=== PATIENT | female | born 1980 | race Caucasian/White ===

== ENCOUNTER 2016-08-02 06:31 | Emergency (ER) | payer OTHER ==
[2016-08-02] MEDS ORDERED: methylPREDNISolone 125 MG* 2 ML VIAL IV ONE (06:49)
[2016-08-02] MEDS ORDERED: diPHENhydraMINE IV* 50 MG/ML 1 ml VIAL (BENADRYL) IV ONE (06:49)
[2016-08-02] MEDS ORDERED: Famotidine IV* 10 MG/ML 2 ML (20 mg) IV SLOW PU ONE (06:49)
[2016-08-02] MEDS ORDERED: NS 0.9% 1000 ML* 2,000 ML IV ONE (06:50)
--- NOTE | 2016-08-02 06:52 | ED ---
Allergic Reaction/Systemic - HPI Summary HPI Summary: Pt here w/ hives, flushing and itching. She had this happen last week 48 hours after starting keflex for a facial cellulitis. She was seen for the reaction and received IV medications as well as home PO prednisone and an anti- histamine. She felt much better but continued her keflex. She took her last prednisone and anti-histamine 2 days ago and started to notice patches returning. After taking her 2am dose of keflex today, she had more acute symptoms and couldn't wait to go to her PCP's office for care so came here. Thinks she has 1 or 2 days left of her keflex but reports her cellulitis is much better. Denies oral swelling, difficulty breathing, wheezing, nausea or vomiting. She does report a possible mild reaction to PCN when she was younger but states she's had keflex in the past w/o difficulty. - History of Current Complaint Chief Complaint: EDAllergicReaction Time Seen by Provider: 08/02/16 06:39 Hx Obtained From: Patient Hx Last Menstrual Period: 04/08/14 Pain Intensity: 6 - Allergies/Home Medications Allergies/Adverse Reactions: Allergies Allergy/AdvReac Type Severity Reaction Status Date / Time Amoxicillin Allergy Intermediate Hives Verified 04/14/14 19:07 PMH/Surg Hx/FS Hx/Imm Hx Previously Healthy: No - facial cellulitis w/ recent allergic reaction Endocrine/Hematology History: Denies: Hx Diabetes, Hx Thyroid Disease, Autoimmune Disease Cardiovascular History: Denies: Hx Hypertension Respiratory History: Denies: Hx Asthma, Hx Chronic Obstructive Pulmonary Disease (COPD) GI History: Denies: Hx Ulcer - Immunization History Date of Tetanus Vaccine: UNSURE Date of Influenza Vaccine: NONE Infectious Disease History: No Infectious Disease History: Denies: Hx Clostridium Difficile, Hx Hepatitis, Hx Human Immunodeficiency Virus (HIV), Hx of Known/Suspected MRSA, Hx Shingles, Hx Tuberculosis, Hx Known/ Suspected VRE, Hx Known/Suspected VRSA, History Other Infectious Disease, Traveled Outside the [place] in Last 30 Days - Family History Known Family History: Positive: None - Social History 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 Alcohol Use: Occasionally Substance Use Type: Reports: Marijuana Smoking Status (MU): Former Smoker Length of Time of Smoking/Using Tobacco: Quit a couple of months ago Have You Smoked in the Last Year: Yes Review of Systems Constitutional: Other - flushing Negative: Fever, Chills, Fatigue Eyes: Negative ENT: Negative Negative: Chest Pain Negative: Shortness Of Breath Gastrointestinal: Negative Positive: no symptoms reported Skin: Other - see HPI Neurological: Negative Psychological: Normal All Other Systems Reviewed And Are Negative: Yes Physical Exam Triage Information Reviewed: Yes Vital Signs On Initial Exam: Initial Vitals Temp Pulse Resp BP Pulse Ox 100 F 96 14 165/91 98 08/02/16 06:34 08/02/16 06:34 08/02/16 06:34 08/02/16 06:34 08/02/16 06:34 Vital Signs Reviewed: Yes Appearance: Positive: No Pain Distress - reports feeling hot and itchy but is in control of her person, Obese Head/Face: Positive: Other - facial and B/L pinna edema and erythema Eyes: Positive: Normal, EOMI, BEKAH, Conjunctiva Clear. Negative: Conjunctiva Inflammed, Discharge ENT: Positive: Hearing grossly normal, Pharynx normal - no edema, TMs normal. Negative: Nasal congestion, Nasal drainage Neck: Positive: Supple, Nontender Respiratory/Lung Sounds: Positive: Clear to Auscultation, Breath Sounds Present. Negative: Rales, Rhonchi, Stridor, Wheezes Cardiovascular: Positive: Normal, RRR, Pulses are Symmetrical in both Upper and Lower Extremities, S1, S2. Negative: Leg Edema Left, Leg Edema Right Abdomen Description: Positive: Nontender, Soft Bowel Sounds: Positive: Present Musculoskeletal: Positive: Normal, Strength/ROM Intact Neurological: Positive: Normal, Sensory/Motor Intact, Alert, Oriented to Person Place, Time, CN Intact II-III Psychiatric: Positive: Normal Diagnostics - Vital Signs Vital Signs Temp Pulse Resp BP Pulse Ox 08/02/16 06:34 100 F 96 14 165/91 98 - Laboratory Lab Statement: Any lab studies that have been ordered have been reviewed, and results considered in the medical decision making process. Re-Evaluation - Re-Evaluation First Eval Change: Improved - itching less, erythema improving Allergic Reaction Course/Dx - Course Course Of Treatment: Suspect pt's reaction was caused by keflex antibiotic. Improved w/ IV allergy cocktail. Will have her continue another prednisone taper + anti-histamine and avoid keflex as well as PCN based anbx in the future. Reviewed danger s/sx of when to return to ED. - Diagnoses Provider Diagnoses: Allergic reaction caused by a drug Discharge - Discharge Plan Condition: Stable Disposition: HOME Prescriptions: Methylprednisolone [Medrol Dosepak 4 MG*] 4 mg PO .SEE TEJAL INSTRUCTION #1 tejal hydrOXYzine HCL TAB* [Atarax TAB*] 25 mg PO QID PRN #20 tab PRN Reason: Itching Patient Education Materials: Antibiotic Medication Allergy (ED) Referrals: Anam Adame MD [Primary Care Provider] - Additional Instructions: Drink plenty of water - AVOID KELFEX AND PENICILLIN BASED ANTIBIOTICS Avoid chemicals in general (ie. air fresheners, perfumes, scented lotions/ detergents/soaps, etc) Follow-up with PCP in 1-2 days *If you develop facial or oral swelling and/or trouble breathing/swallowing, return to ED
[2016-08-02 09:39] VITALS: BP 149/80
== END 2016-08-02 09:47 | disposition home or self-care (01) ==
LOC: ED 06:31
DX: J30.81 Allergic rhinitis due to animal (cat) (dog) hair and dander (principal); R21 Rash and other nonspecific skin eruption; Z87.891 Personal history of nicotine dependence
CPT/HCPCS: 96374; 96375; 99284; J1200; J2930

== ENCOUNTER 2016-08-10 09:41 | Emergency (ER) | payer OTHER ==
[2016-08-10] MEDS ORDERED: diPHENhydraMINE IV* 50 MG/ML 1 ml VIAL (BENADRYL) IV ONE (10:42)
[2016-08-10] MEDS ORDERED: methylPREDNISolone 125 MG* 2 ML VIAL IV ONE (10:42)
[2016-08-10] MEDS ORDERED: Famotidine IV * 20 MG in NS 0.9% 100 ML* 100 ML IVPB ONE (10:42)
[2016-08-10] MEDS ORDERED: Acetaminophen TAB* 325 MG PO ONE (10:43)
[2016-08-10 10:54] LABS: Hematocrit 41 % (35-47); Hemoglobin 13.1 g/dl (12.0-16.0); Mean Corpuscular HGB Conc 32 g/dl (31-36); Mean Corpuscular Hemoglobin 27 pg (27-31); Mean Corpuscular Volume 83 fL (80-97); Mean Platelet Volume 7 um3 (7.4-10.4); Red Blood Count 4.88 10^6/ul (4.0-5.4); Red Cell Distribution Width 13 % (10.5-15); White Blood Count 11.5 10^3/ul (3.5-10.8)
[2016-08-10] MEDS: NS 0.9% 1000 ML* 2,000 ML IV ONE ×2 (11:03→11:41)
[2016-08-10 11:10] LABS: Albumin 3.2 g/dL (3.2-5.2); BUN/Creatinine Ratio 32.3 (8-20); Calcium 8.4 mg/dL (8.6-10.3); EGFR African American 134.2 (>60); EGFR Non-African American 104.3 (>60); Globulin 2.8 g/dL (2-4); Potassium 4.3 mmol/L (3.5-5.0); Total Bilirubin 0.5 mg/dL (0.2-1.0)
[2016-08-10 13:08] VITALS: BP 127/79
[2016-08-10 13:31] LABS: Urine Bilirubin Negative (Negative); Urine Glucose Negative (Negative); Urine Nitrite Negative (Negative)
--- NOTE | 2016-08-10 14:35 | ED ---
Ganga Tobias Adam, scribed for Erik Bourne MD on 08/10/16 at 1036 . Skin Complaint - HPI Summary HPI Summary: 2 weeks ago she went to the hospital in [place] because she had cellulitis on her face. She was put on Keflex and steroids. 1 week ago she came to [facility] because her face was swollen and she was taken off the Keflex. She came to the ED today because her facial swelling has persisted. She states that she is no longer taking the steroids or any other medication at this time. She also c/o itchiness, pain in the back of her neck/head, and soreness in the left side of her throat. She presents with a fever of 101.3 and denies having a fever prior to today. PCP is Dr. Adame but she has not seen him about this. - History of Current Complaint Chief Complaint: EDFever Time Seen by Provider: 08/10/16 10:18 Stated Complaint: RASH/FACE SWELLING Hx Obtained From: Patient Onset/Duration: Started Weeks Ago, Atraumatic, Still Present Timing: Constant Onset Severity: Moderate Current Severity: Moderate Pain Intensity: 6 Pain Scale Used: 0-10 Numeric Skin Location: Face Character: Swelling, Pruritus, Redness Aggravating Symptom(s): Nothing Alleviating Symptom(s): Nothing Associated Signs & Symptoms: Fever - Allergy/Home Medications Allergies/Adverse Reactions: Allergies Allergy/AdvReac Type Severity Reaction Status Date / Time Amoxicillin Allergy Intermediate Hives Verified 04/14/14 19:07 Cephalexin [From Keflex] Allergy Hives Verified 08/02/16 08:13 Penicillins Allergy Hives Verified 08/02/16 09:31 PMH/Surg Hx/FS Hx/Imm Hx Endocrine/Hematology History: Denies: Hx Diabetes, Hx Thyroid Disease Cardiovascular History: Denies: Hx Hypertension Respiratory History: Denies: Hx Asthma, Hx Chronic Obstructive Pulmonary Disease (COPD) GI History: Denies: Hx Ulcer - Immunization History Date of Tetanus Vaccine: UNSURE Date of Influenza Vaccine: NONE Infectious Disease History: No Infectious Disease History: Denies: Hx Clostridium Difficile, Hx Hepatitis, Hx Human Immunodeficiency Virus (HIV), Hx of Known/Suspected MRSA, Hx Shingles, Hx Tuberculosis, Hx Known/ Suspected VRE, Hx Known/Suspected VRSA, History Other Infectious Disease, Traveled Outside the [place] in Last 30 Days - Family History Known Family History: Positive: None - Per pt - Social History Lives: Alone Alcohol Use: Occasionally Hx Substance Use: Yes Substance Use Type: Reports: Marijuana Hx Tobacco Use: Yes Smoking Status (MU): Former Smoker Length of Time of Smoking/Using Tobacco: Quit a couple of months ago Have You Smoked in the Last Year: Yes Review of Systems Positive: Sore Throat Positive: Myalgia - Back of head/neck, Edema - Facial Positive: Other - Itchiness All Other Systems Reviewed And Are Negative: Yes Physical Exam Triage Information Reviewed: Yes Vital Signs On Initial Exam: Initial Vitals Temp Pulse Resp BP Pulse Ox 101.3 F 101 20 135/92 100 08/10/16 09:51 08/10/16 09:51 08/10/16 09:51 08/10/16 09:51 08/10/16 09:51 Vital Signs Reviewed: Yes Appearance: Positive: Well-Appearing, No Pain Distress Skin: Positive: Warm, Skin Color Reflects Adequate Perfusion, Dry Head/Face: Positive: Normal Head/Face Inspection Eyes: Positive: Normal ENT: Positive: Normal ENT inspection Neck: Positive: Supple, Nontender Respiratory/Lung Sounds: Positive: Clear to Auscultation, Breath Sounds Present Cardiovascular: Positive: RRR Abdomen Description: Positive: Nontender, Soft Bowel Sounds: Positive: Present Musculoskeletal: Positive: Normal Neurological: Positive: Normal Psychiatric: Positive: Normal, Affect/Mood Appropriate Diagnostics - Vital Signs Vital Signs Temp Pulse Resp BP Pulse Ox 08/10/16 09:51 101.3 F 101 20 135/92 100 - Laboratory Lab Results: Lab Results 08/10/16 08/10/16 08/10/16 Range/Units 10:37 10:37 10:37 WBC 11.5 H (3.5-10.8) 10^3/ul RBC 4.88 (4.0-5.4) 10^6/ul Hgb 13.1 (12.0-16.0) g/dl Hct 41 (35-47) % MCV 83 (80-97) fL MCH 27 (27-31) pg MCHC 32 (31-36) g/dl RDW 13 (10.5-15) % Plt Count 285 (150-450) 10^3/ul MPV 7 L (7.4-10.4) um3 Neut % (Auto) 82.8 (38-83) % Lymph % (Auto) 9.5 L (25-47) % [place] % (Auto) 2.6 (1-9) % Eos % (Auto) 4.9 (0-6) % Baso % (Auto) 0.2 (0-2) % Absolute Neuts (auto) 9.5 H (1.5-7.7) 10^3/ul Absolute Lymphs (auto) 1.1 (1.0-4.8) 10^3/ul Absolute Monos (auto) 0.3 (0-0.8) 10^3/ul Absolute Eos (auto) 0.6 (0-0.6) 10^3/ul Absolute Basos (auto) 0 (0-0.2) 10^3/ul Absolute Nucleated RBC 0 10^3/ul Nucleated RBC % 0 INR (Anticoag Therapy) 0.78 L (0.89-1.11) Sodium 132 L (133-145) mmol/L Potassium 4.3 (3.5-5.0) mmol/L Chloride 104 (101-111) mmol/L Carbon Dioxide 25 (22-32) mmol/L Anion Gap 3 (2-11) mmol/L BUN 21 (6-24) mg/dL Creatinine 0.65 (0.51-0.95) mg/dL Est GFR ( Amer) 134.2 (>60) Est GFR (Non-Af Amer) 104.3 (>60) BUN/Creatinine Ratio 32.3 H (8-20) Glucose 110 H (70-100) mg/dL Lactic Acid (0.5-2.0) mmol/L Calcium 8.4 L (8.6-10.3) mg/dL Total Bilirubin 0.50 (0.2-1.0) mg/dL AST 15 (13-39) U/L ALT 40 (7-52) U/L Alkaline Phosphatase 54 (34-104) U/L Troponin I 0.00 (<0.04) ng/mL Total Protein 6.0 L (6.4-8.9) g/dL Albumin 3.2 (3.2-5.2) g/dL Globulin 2.8 (2-4) g/dL Albumin/Globulin Ratio 1.1 (1-3) Urine Color Urine Appearance Urine pH (5-9) Ur Specific [place] (1.010-1.030) Urine Protein (Negative) Urine Ketones (Negative) Urine Blood (Negative) Urine Nitrate (Negative) Urine Bilirubin (Negative) Urine Urobilinogen (Negative) Ur Leukocyte Esterase (Negative) Urine Glucose (Negative) 08/10/16 08/10/16 Range/Units 10:37 12:45 WBC (3.5-10.8) 10^3/ul RBC (4.0-5.4) 10^6/ul Hgb (12.0-16.0) g/dl Hct (35-47) % MCV (80-97) fL MCH (27-31) pg MCHC (31-36) g/dl RDW (10.5-15) % Plt Count (150-450) 10^3/ul MPV (7.4-10.4) um3 Neut % (Auto) (38-83) % Lymph % (Auto) (25-47) % [place] % (Auto) (1-9) % Eos % (Auto) (0-6) % Baso % (Auto) (0-2) % Absolute Neuts (auto) (1.5-7.7) 10^3/ul Absolute Lymphs (auto) (1.0-4.8) 10^3/ul Absolute Monos (auto) (0-0.8) 10^3/ul Absolute Eos (auto) (0-0.6) 10^3/ul Absolute Basos (auto) (0-0.2) 10^3/ul Absolute Nucleated RBC 10^3/ul Nucleated RBC % INR (Anticoag Therapy) (0.89-1.11) Sodium (133-145) mmol/L Potassium (3.5-5.0) mmol/L Chloride (101-111) mmol/L Carbon Dioxide (22-32) mmol/L Anion Gap (2-11) mmol/L BUN (6-24) mg/dL Creatinine (0.51-0.95) mg/dL Est GFR ( Amer) (>60) Est GFR (Non-Af Amer) (>60) BUN/Creatinine Ratio (8-20) Glucose (70-100) mg/dL Lactic Acid 0.6 (0.5-2.0) mmol/L Calcium (8.6-10.3) mg/dL Total Bilirubin (0.2-1.0) mg/dL AST (13-39) U/L ALT (7-52) U/L Alkaline Phosphatase (34-104) U/L Troponin I (<0.04) ng/mL Total Protein (6.4-8.9) g/dL Albumin (3.2-5.2) g/dL Globulin (2-4) g/dL Albumin/Globulin Ratio (1-3) Urine Color Straw Urine Appearance Clear Urine pH 6.0 (5-9) Ur Specific [place] 1.012 (1.010-1.030) Urine Protein Negative (Negative) Urine Ketones Negative (Negative) Urine Blood Negative (Negative) Urine Nitrate Negative (Negative) Urine Bilirubin Negative (Negative) Urine Urobilinogen Negative (Negative) Ur Leukocyte Esterase Negative (Negative) Urine Glucose Negative (Negative) Result Diagrams: 08/10/16 10:37 08/10/16 10:37 Lab Statement: Any lab studies that have been ordered have been reviewed, and results considered in the medical decision making process. - Additional Comments Diagnostic Additional Comments: Troponin I - 0.00 Course/Dx - Course Course Of Treatment: Ms. Hills presented with a fever, tachycardia and hives. She technically met SIRS criteria but she improved completely with treating for her urticaria. Her W/U was otherwise negative and she has F/U next week. 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 - Diagnoses Provider Diagnoses: Allergic reaction Discharge - Discharge Plan Condition: Stable Disposition: HOME Prescriptions: Methylprednisolone [Medrol Dosepak 4 MG*] 4 mg PO .SEE TEJAL INSTRUCTION #1 tab Patient Education Materials: General Allergic Reaction (ED) Referrals: Anam Adame MD [Primary Care Provider] - Additional Instructions: Follow up with Dr. Adame. The documentation as recorded by the Ganga hunter Adam accurately reflects the service I personally performed and the decisions made by me, Erik Bourne MD.
== END 2016-08-10 14:02 | disposition home or self-care (01) ==
LOC: ED 09:41
DX: L50.0 Allergic urticaria (principal); R50.9 Fever, unspecified; L29.9 Pruritus, unspecified; Z87.891 Personal history of nicotine dependence; J02.9 Acute pharyngitis, unspecified
CPT/HCPCS: 36415; 80053; 81003; 83605; 84484; 85025; 85610; 87040; 96360; 99283; A9270-GY; J1200; J2930

== ENCOUNTER 2016-09-01 11:07 | Emergency (ER) | payer OTHER ==
[2016-09-01] MEDS ORDERED: Famotidine IV* 10 MG/ML 2 ML (20 mg) IV SLOW PU ONE (11:41)
[2016-09-01] MEDS ORDERED: diPHENhydraMINE IV* 50 MG in NS 0.9% 50 ML* 50 ML IVPB ONE (11:41)
[2016-09-01] MEDS ORDERED: methylPREDNISolone 125 MG* 2 ML VIAL IV ONE (11:41)
[2016-09-01] MEDS ORDERED: NS 0.9% 1000 ML* 1,000 ML IV ONE (11:42)
--- NOTE | 2016-09-01 12:20 | ED ---
Allergic Reaction/Systemic - HPI Summary HPI Summary: Patient presents with full body erythema, facial swelling and pruritis that began last night at 11pm. Since Jul 19, 2016 she has begun to have reactions to an unknown agent. This is her fourth time to the ED for this type of reaction. She can not identify the cause, and has seen an hogshead opener who performed testing , of which she is awaiting results. Her PCP issued her an EPI-PEN, which she has not felt the need to use since she has never felt like she had airway involvement. In triage she has a temperature of 102. She denies abdominal or back pain. No headache, neck pain, weakness, N/T, muscle pain, sore throat, ear aches. She has felt like her usual self up until last night at 11:00 when her reaction symptoms began. She has been eating, drinking and sleeping normally. She was out last night drinking "a lot" of alcohol, and did vomit related to drinking. She feels "hung over" today, but not different that her "usual hangovers". - History of Current Complaint Chief Complaint: EDAllergicReaction Time Seen by Provider: 09/01/16 11:17 Hx Obtained From: Patient, Family/Retail Sales Representative Hx Last Menstrual Period: 04/08/14 Onset/Duration: Gradual Onset Timing: Constant Severity Initially: Mild Severity Currently: Moderate Pain Intensity: 4 Location: Diffuse Character: Swelling, Pruritus Aggravating Factor(s): Other - unknown Alleviating Factor(s): Antihistamines Associated Signs And Symptoms: Positive: Rash - erythema without hives - Related Hx Possible Reaction To: Unknown - Allergies/Home Medications Allergies/Adverse Reactions: Allergies Allergy/AdvReac Type Severity Reaction Status Date / Time Amoxicillin Allergy Intermediate Hives Verified 04/14/14 19:07 Cephalexin [From Keflex] Allergy Hives Verified 08/02/16 08:13 Penicillins Allergy Hives Verified 08/02/16 09:31 PMH/Surg Hx/FS Hx/Imm Hx Previously Healthy: Yes Endocrine/Hematology History: Denies: Hx Diabetes, Hx Thyroid Disease Cardiovascular History: Denies: Hx Hypertension Respiratory History: Denies: Hx Asthma, Hx Chronic Obstructive Pulmonary Disease (COPD) GI History: Denies: Hx Ulcer - Immunization History Date of Tetanus Vaccine: UNSURE Date of Influenza Vaccine: NONE Infectious Disease History: No Infectious Disease History: Denies: Hx Clostridium Difficile, Hx Hepatitis, Hx Human Immunodeficiency Virus (HIV), Hx of Known/Suspected MRSA, Hx Shingles, Hx Tuberculosis, Hx Known/ Suspected VRE, Hx Known/Suspected VRSA, History Other Infectious Disease, Traveled Outside the [place] in Last 30 Days - Family History Known Family History: Positive: None - Per pt - Social History Occupation: Employed Full-time Lives: With Family Alcohol Use: Occasionally Hx Substance Use: Yes Substance Use Type: Reports: Marijuana Hx Tobacco Use: Yes Smoking Status (MU): Former Smoker Length of Time of Smoking/Using Tobacco: Quit a couple of months ago Have You Smoked in the Last Year: Yes Review of Systems Negative: Fever, Chills Negative: Sore Throat Negative: Chest Pain Negative: Shortness Of Breath Negative: Abdominal Pain Positive: Edema - facial. Negative: Myalgia Positive: Other - diffuse erythema without raised hives Negative: Headache, Weakness All Other Systems Reviewed And Are Negative: Yes Physical Exam Triage Information Reviewed: Yes Vital Signs On Initial Exam: Initial Vitals Temp Pulse Resp BP Pulse Ox 102.4 F 113 16 131/67 100 09/01/16 11:08 09/01/16 11:08 09/01/16 11:08 09/01/16 11:08 09/01/16 11:08 Vital Signs Reviewed: Yes Appearance: Positive: Well-Appearing, No Pain Distress, Obese Skin: Positive: Warm, Skin Color Reflects Adequate Perfusion, Dry, Erythema @ - diffuse erythema over chest, bilateral upper extremities, face and back Head/Face: Positive: Other - mild eyelid edema with diffuse facial edema Eyes: Positive: EOMI, BEKAH, Conjunctiva Clear ENT: Positive: Hearing grossly normal, Pharynx normal. Negative: Tonsillar swelling, Trismus, Muffled/hoarse voice Neck: Positive: Supple, Nontender, No Lymphadenopathy Respiratory/Lung Sounds: Positive: Clear to Auscultation, Breath Sounds Present Cardiovascular: Positive: Tachycardia Abdomen Description: Positive: Nontender, Soft Bowel Sounds: Positive: Present Musculoskeletal: Positive: Strength/ROM Intact Neurological: Positive: Sensory/Motor Intact, Alert, Oriented to Person Place, Time, [place] Bundle Intact Distally, Normal Gait Psychiatric: Positive: Affect/Mood Appropriate AVPU Assessment: Alert - [place] Coma Scale Coma Scale Total: 15 Diagnostics - Vital Signs Vital Signs Temp Pulse Resp BP Pulse Ox 09/01/16 11:08 102.4 F 113 16 131/67 100 - Laboratory Result Diagrams: 09/01/16 11:30 09/01/16 11:30 Lab Statement: Any lab studies that have been ordered have been reviewed, and results considered in the medical decision making process. - Radiology No standard instances Xray Interpretation: No Acute Changes Radiology Interpretation Completed By: Radiologist Re-Evaluation - Re-Evaluation First Eval Re-Evaluation Time: 12:30 Change: Improved Comment: Patient's itching and rash have decreased, but her temperature has not. I will give Toradol. Second Eval Re-Evaluation Time: 15:30 Change: Improved Comment: Patient continues to improve and temperature has reduced. Allergic Reaction Course/Dx - Course Course Of Treatment: The pateint was discussed with Dr. Bermudez throughout her course in the ED. We discussed that her urine, chest x-ray and flu swab were all negative, and that her labs could be explained by her allergic reaction, considering she has not other complaints at this time. The patient has use 2 Medrol dose packs, and one taper of steroids, therefore I will defer to her PCP for any further use of steroids. The patient is reliable and understands that if her symptoms worsen she should immediately present to the ED for evaluation. - Diagnoses Differential Diagnosis/HQI/PQRI: Positive: Airway Obstruction, Anaphylaxis, Angioedema, Local Allergic Reaction, Urticaria Provider Diagnoses: Allergic reaction, Fever - Provider Notifications Patient Care Discussed With: Dr. Bermudez, emergency department attending. Discharge - Discharge Plan Condition: Stable Disposition: HOME Prescriptions: Famotidine TAB* [Pepcid TAB*] 40 mg PO DAILY PRN #10 tab PRN Reason: Hives diPHENhydraMINE PO* [Benadryl PO*] 50 mg PO Q6H PRN #60 cap PRN Reason: Hives Patient Education Materials: General Allergic Reaction (ED) Referrals: Anam Adame MD [Primary Care Provider] - Additional Instructions: Please call your PCP to be seen on Saturday for re-evaluation. Keep your epi-pen with you or near by at all times, and if you use it, call 911. Call your hogshead opener to see if your appointment can be moved up since this is your fourth visit to the ED since late June. Return to the emergency department if your symptoms worsen or you have concerns.
[2016-09-01] MEDS ORDERED: Ketorolac INJ* 30 MG/ML 1 ML VIAL IV ONE (13:19)
[2016-09-01 13:42] LABS: Hematocrit 44 % (35-47); Hemoglobin 14.4 g/dl (12.0-16.0); Mean Corpuscular HGB Conc 33 g/dl (31-36); Mean Corpuscular Hemoglobin 27 pg (27-31); Mean Corpuscular Volume 84 fL (80-97); Mean Platelet Volume 8 um3 (7.4-10.4); Red Blood Count 5.27 10^6/ul (4.0-5.4); Red Cell Distribution Width 14 % (10.5-15); White Blood Count 7.3 10^3/ul (3.5-10.8)
[2016-09-01 13:44] LABS: Add Diff/Slide Review? Slide Review Added; Comments Flag Yes
[2016-09-01 13:53] LABS: ALT 29 U/L (7-52); Albumin 3.7 g/dL (3.2-5.2); Alkaline Phosphatase 58 U/L (34-104); BUN/Creatinine Ratio 15.7 (8-20); Blood Urea Nitrogen 13 mg/dL (6-24); C Reactive Protein 19.23 mg/L (< 5.00); CO2 Carbon Dioxide 27 mmol/L (22-32); Calcium 8.8 mg/dL (8.6-10.3); Chloride 98 mmol/L (101-111); EGFR African American 101.2 (>60); EGFR Non-African American 78.7 (>60); Globulin 3.3 g/dL (2-4); Glucose 117 mg/dL (70-100); Sodium 130 mmol/L (133-145)
[2016-09-01 14:12] LABS: Eosinophils % 1 % (0-6); Immature Granulocytes 12 % (0-9); Neutrophil % 85 % (38-83)
[2016-09-01 14:13] LABS: RBC Morphology Normal (Normal)
[2016-09-01 14:57] LABS: AST 22 U/L (13-39); Anion Gap 5 mmol/L (2-11); Potassium 4.5 mmol/L (3.5-5.0)
--- NOTE | 2016-09-01 15:43 | RAD ---
INDICATION: Fever. Allergic reaction. History of tobacco use. COMPARISON: None. TECHNIQUE: Dual energy PA and routine lateral views of the chest were obtained. REPORT: Clear lungs and pleural spaces. Negative for pneumothorax. The heart, pulmonary vasculature, and mediastinal contours are unremarkable. Unremarkable osseous structures and soft tissue contours. IMPRESSION: No evidence for acute intrathoracic disease.
[2016-09-01 16:28] LABS: Urine Bacteria Absent (Absent); Urine Bilirubin Negative (Negative); Urine Glucose Negative (Negative); Urine Nitrite Negative (Negative)
[2016-09-01 17:34] VITALS: BP 115/64
== END 2016-09-01 17:35 | disposition home or self-care (01) ==
LOC: ED 11:07
DX: T78.40XA Allergy, unspecified, initial encounter (principal); X58.XXXA Exposure to other specified factors, initial encounter; R50.9 Fever, unspecified; Z87.891 Personal history of nicotine dependence; Z88.0 Allergy status to penicillin; Z88.1 Allergy status to other antibiotic agents
CPT/HCPCS: 36415; 71020; 80053; 81003; 81015; 84702; 85025; 86140; 87502; 96360; 96374; 96375; 99283; J1200; J1885; J2930

== ENCOUNTER 2017-03-11 02:39 | Emergency (ER) | payer OTHER ==
[2017-03-11] MEDS ORDERED: diPHENhydraMINE IV* 50 MG/ML 1 ml VIAL (BENADRYL) IV ONE (03:02)
[2017-03-11] MEDS ORDERED: methylPREDNISolone 125 MG* 2 ML VIAL IV ONE (03:02)
[2017-03-11] MEDS ORDERED: Famotidine IV* 10 MG/ML 2 ML (20 mg) IV SLOW PU ONE (03:02)
--- NOTE | 2017-03-11 04:15 | ED ---
I, Jarocho,Irish, scribed for Kolton Renteria MD on 03/11/17 at 0304 . Allergic Reaction/Systemic - HPI Summary HPI Summary: This 36 y/o female presents to ED for facial swelling since tonight. Pt is unsure what could have caused the reaction. She denies any new detergent, perfume, shampoo, or cosmetics. PMHx includes recurrent bouts x5 of allergic reaction with itchiness and facial swelling since July 2016. Pt has seen breakfast cook without finding out possible cause. Pt has not taken anything to control the reaction tonight. - History of Current Complaint Chief Complaint: EDAllergicReaction Time Seen by Provider: 03/11/17 02:58 Hx Obtained From: Patient, Medical Records Hx Last Menstrual Period: 04/08/14 Onset/Duration: Sudden Onset, Started hours ago, Still Present Timing: Constant Pain Intensity: 0 Pain Scale Used: 0-10 Numeric Location: Discrete @ - facial and neck Aggravating Factor(s): Nothing Alleviating Factor(s): Nothing Associated Signs And Symptoms: Positive: Other: - facial swelling. Negative: Difficulty Breathing, Hoarseness - Allergies/Home Medications Allergies/Adverse Reactions: Allergies Allergy/AdvReac Type Severity Reaction Status Date / Time Amoxicillin Allergy Intermediate Hives Verified 03/11/17 02:51 Cephalexin [From Keflex] Allergy Hives Verified 03/11/17 02:51 Penicillins Allergy Hives Verified 03/11/17 02:51 PMH/Surg Hx/FS Hx/Imm Hx Endocrine/Hematology History: Denies: Hx Diabetes, Hx Thyroid Disease Cardiovascular History: Denies: Hx Hypertension Respiratory History: Denies: Hx Asthma, Hx Chronic Obstructive Pulmonary Disease (COPD) GI History: Denies: Hx Ulcer - Immunization History Date of Tetanus Vaccine: UNSURE Date of Influenza Vaccine: NONE Infectious Disease History: No Infectious Disease History: Denies: Hx Clostridium Difficile, Hx Hepatitis, Hx Human Immunodeficiency Virus (HIV), Hx of Known/Suspected MRSA, Hx Shingles, Hx Tuberculosis, Hx Known/ Suspected VRE, Hx Known/Suspected VRSA, History Other Infectious Disease, Traveled Outside the [place] in Last 30 Days - Family History Known Family History: Positive: Diabetes - Social History Alcohol Use: Occasionally Hx Substance Use: Yes Substance Use Type: Reports: Marijuana Hx Tobacco Use: Yes Smoking Status (MU): Former Smoker Length of Time of Smoking/Using Tobacco: Quit a couple of months ago Have You Smoked in the Last Year: Yes Review of Systems Negative: Fever Negative: Shortness Of Breath Positive: Other - facial swelling All Other Systems Reviewed And Are Negative: Yes Physical Exam Triage Information Reviewed: Yes Vital Signs On Initial Exam: Initial Vitals Temp Pulse Resp BP Pulse Ox 99.3 F 93 16 118/80 100 03/11/17 02:46 03/11/17 02:46 03/11/17 02:46 03/11/17 02:46 03/11/17 02:46 Vital Signs Reviewed: Yes Appearance: Positive: Well-Appearing, No Pain Distress Skin: Positive: Warm, Other - diffuse facial erythema and warmth with mild swelling Eyes: Positive: EOMI, BEKAH ENT: Positive: Pharynx normal. Negative: Pharyngeal erythema Neck: Positive: Supple, Nontender Respiratory/Lung Sounds: Positive: Clear to Auscultation, Breath Sounds Present Cardiovascular: Positive: RRR Abdomen Description: Positive: Nontender, Soft Bowel Sounds: Positive: Present Musculoskeletal: Positive: Strength/ROM Intact Neurological: Positive: Sensory/Motor Intact, Alert, Oriented to Person Place, Time, Normal Gait Psychiatric: Positive: Affect/Mood Appropriate - Erik Coma Scale Coma Scale Total: 15 Diagnostics - Vital Signs Vital Signs Temp Pulse Resp BP Pulse Ox 03/11/17 02:47 99.3 F 80 16 118/80 100 03/11/17 02:46 99.3 F 93 16 118/80 100 - Laboratory Lab Statement: Any lab studies that have been ordered have been reviewed, and results considered in the medical decision making process. Re-Evaluation - Re-Evaluation First Eval Change: Improved - less swelling Allergic Reaction Course/Dx - Course Assessment/Plan: This 36 y/o female presents to ED for allergic reaction with general facial swelling. PMHx includes recurrent similar episodes x5 since July 2016. She has been following up with breakfast cook without finding the cause of the reaction. Pt was symptomatically treated with Pepcid, Benadryl, and methylprednisolone in ED. She remains stable throughout ED course, and she is discharged. - Diagnoses Provider Diagnoses: Allergic reaction Discharge - Discharge Plan Condition: Improved Disposition: HOME Prescriptions: Famotidine TAB* [Pepcid 20 MG TAB*] 20 mg PO BID #30 tab diPHENhydraMINE PO* [Benadryl PO 25 MG TAB*] 25 mg PO Q6H #14 tab predniSONE TAB* [Deltasone TAB*] 40 mg PO DAILY #8 tab Patient Education Materials: General Allergic Reaction (ED), Famotidine (By mouth), Diphenhydramine (By mouth), Prednisone (By mouth) Referrals: Anam Adame MD [Primary Care Provider] - 2 Days The documentation as recorded by the Jarocho hunter Soohyun accurately reflects the service I personally performed and the decisions made by me, Kolton Renteria MD.
[2017-03-11 04:57] VITALS: BP 120/63
== END 2017-03-11 04:56 | disposition home or self-care (01) ==
LOC: ED 02:39
DX: T78.40XA Allergy, unspecified, initial encounter (principal); R22.0 Localized swelling, mass and lump, head; X58.XXXA Exposure to other specified factors, initial encounter; Z88.1 Allergy status to other antibiotic agents; Z88.0 Allergy status to penicillin; F12.90 Cannabis use, unspecified, uncomplicated; Z87.891 Personal history of nicotine dependence
CPT/HCPCS: 96374; 96375; 99282; J1200; J2930